=== PATIENT | female | born 1970 | race Caucasian/White ===

== ENCOUNTER 2016-10-30 16:57 | Emergency (ER) | payer BC ==
[2016-10-30] MEDS ORDERED: Sodium Chloride 0.9% 1000 ML 1,000 ML IV STA (17:33)
--- NOTE | 2016-10-30 17:40 | ERPHSYRPT ---
- History of Present Illness Time Seen by Provider: 10/30/16 17:34 Historian: patient Exam Limitations: no limitations Patient Subjective Stated Complaint: RLQ ABD PAIN SINCE 10/20/16. HAD OVARIAN CYSTS REMOVED AND A D&C AT THAT TIME. SEEN SINCE THEN BY FAMILY MD AND AT ED. DX WITH PANCREATITIS. STATES OF WEDNESDAY LABS FOR PANCREATITIS ARE BACK TO NORMAL BUT PAIN CONTINUES. STATES HASN'T BEEN ABLE TO EAT. Triage Nursing Assessment: AMBULATED TO ROOM WITHOUT DIFFICULTY. SKIN W/D, COLOR NORMAL, RESP EASY. ABD SOFT, TENDER. NORMAL BS THROUGHOUT. Physician History: This is a 46-year-old white female with history of chronic pain syndrome and a history of chronic back pain fibromyalgia rheumatoid arthritis she has been complaining of pain in her right upper quadrant abdomen since October 20, 2016 According to the patient she had had an ovarian cyst removal and a D&C at that time she woke up and had abdominal pain she began to have pain in her right upper quadrant she was seen by her family doctor and diagnosed with pancreatitis. Patient the did have a CT of the abdomen here in the emergency room which showed a tiny amount of free air under the right hemidiaphragm incidental left renal cyst and she had lumbosacral junction postsurgical change with bilateral L5 spondylosis and great 5 spondylolisthesis at that time. Patient states she was seen by her family doctor released placed on clear fluids she states she went to [facility] 2 days ago and was told that her amylase and lipase had returned to normal. She now returns stating she is having pain in her right upper quadrant she states she is nauseous she is not vomiting. Patient has no fevers no urinary symptoms. Patient does state that she has not been eating well because of her pain. Patient is on oxycodone and fentanyl which was prescribed by her family doctor. Past medical history includes fibromyalgia, rheumatoid arthritis, cancer of the posterior right leg chronic fatigue, and neuropathy. Past surgical history includes D&C, orthopedic surgery, back surgery 2, Surgery 2 and surgery for cancer on the back of her leg. Timing/Duration: day(s) (pain for 10 days) Activities at Onset: other (began after surgery on the for cyst removal and Dand C) Quality: cramping Abdominal Pain Onset Location: RUQ Pain Radiation: no radiation Severity of Pain-Max: moderate Severity of Pain-Current: moderate Modifying Factors: Improves With: other (patient on fentanyl patches as well as oxycodone) Associated Symptoms: No back, No chest pain, No diaphoresis, No diarrhea, No fever/chills, No fatigue, No headache, No heartburn, No loss of appetite, No neck pain, No rash, No shortness of breath, No syncope, No vomiting, No weakness Previous symptoms: same symptoms as today Allergies/Adverse Reactions: duloxetine HCl [From Cymbalta] Allergy (Verified 04/04/15 11:18) infliximab [From Remicade] Allergy (Verified 04/04/15 11:18) methadone Allergy (Verified 04/04/15 11:18) pregabalin [From Lyrica] Allergy (Verified 04/04/15 11:18) Home Medications: Amphet Asp/Amphet/D-Amphet [Adderall 30 mg Tablet] 30 mg PO BID 04/04/15 [ History] Oxycodone HCl [Oxycodone HCl ER] 10 mg PO QID 04/04/15 [History] Citalopram Hydrobromide [Celexa] 10 mg PO HS 10/30/16 [History] Cyclobenzaprine HCl [Flexeril] 20 mg PO HS 10/30/16 [History] Fentanyl [Duragesic 12MCG Patch] 24 mcg TD Q3D 10/30/16 [History] - Review of Systems Constitutional: No Fever, No Chills Eyes: No Symptoms Ears, Nose, & Throat: No Symptoms Respiratory: No Cough, No Dyspnea Cardiac: No Symptoms Abdominal/Gastrointestinal: Abdominal Pain (pain in the right upper quadrant ), Nausea, No Vomiting, No Diarrhea, No Constipation, No Hematemesis, No Hematochezia, No Melena, No Dysphagia, No Appetite Changes Genitourinary Symptoms: No Dysuria Musculoskeletal: No Back Pain, No Neck Pain Skin: No Rash Neurological: No Dizziness, No Focal Weakness, No Sensory Changes Psychological: No Symptoms Endocrine: No Symptoms All Other Systems: Reviewed and Negative - Past Medical History Pertinent Past Medical History: Yes Neurological History: Peripheral Neuropathy ENT History: No Pertinent History Cardiac History: No Pertinent History Respiratory History: No Pertinent History Endocrine Medical History: No Pertinent History Musculoskeletal History: Fibromyalgia, Rheumatoid Arthritis, Other GI Medical History: No Pertinent History History: No Pertinent History Psycho-Social History: No Pertinent History Female Reproductive Disorders: No Pertinent History Other Medical History: CA ON POSTERIOR RIGHT LEG - Past Surgical History Past Surgical History: Yes Neuro Surgical History: No Pertinent History Cardiac: No Pertinent History Respiratory: No Pertinent History Gastrointestinal: No Pertinent History Genitourinary: No Pertinent History Musculoskeletal: Orthopedic Surgery Female Surgical History: No Pertinent History, Dilation & Curettage Other Surgical History: 2 back surgeries, OVARIAN CYST REMOVED, TWO NECK SURGERIES, CA ON BACK OF RIGHT LEG - Social History Smoking Status: Current every day smoker How long have you smoked: 20 Exposure to second hand smoke: No Drug Use: none Patient Lives Alone: Yes - Female History Hx Last Menstrual Period: ONE YEAR AGO - Nursing Vital Signs Nursing Vital Signs: Initial Vital Signs Temperature 97.7 F Temperature Source Oral Pulse Rate 65 Respiratory Rate 16 Blood Pressure [Right Arm] 107/75 Pain Intensity 8 - Physical Exam General Appearance: no apparent distress, alert Eye Exam: PERRL/EOMI, eyes nml inspection Ears, Nose, Throat Exam: normal ENT inspection, pharynx normal, moist mucous membranes Neck Exam: normal inspection, non-tender, supple, full range of motion Respiratory Exam: normal breath sounds, lungs clear, No respiratory distress Cardiovascular Exam: regular rate/rhythm, normal heart sounds Gastrointestinal/Abdomen Exam: soft, normal bowel sounds, tenderness (right upper quadrant tenderness), No distention, No mass, No guarding, No ecchymosis, No pulsatile mass, No rebound, No hernia, No hepatomegaly, No organomegaly, No splenomegaly Back Exam: normal inspection, normal range of motion, No CVA tenderness, No vertebral tenderness Extremity Exam: normal inspection, normal range of motion, pelvis stable Neurologic Exam: alert, oriented x 3, cooperative, normal mood/affect, nml cerebellar function, sensation nml, No motor deficits Skin Exam: normal color, warm, dry SpO2 Interpretation: normal - Course Nursing assessment & vital signs reviewed: Yes EKG Interpreted by Me: RATE (61 bpm), Sinus Rhythm, NORMAL AXIS, Other (EKG, normal sinus rhythm 61 bpm, normal axis, no acute ST or T wave changes, essentially normal EKG) Ordered Tests: Active Orders 24 hr Category Date Time Status EKG-ER Only STAT Care 10/30/16 17:43 Active IV Insertion STAT Care 10/30/16 17:33 Active AMYLASE Stat Lab 10/30/16 17:30 Completed CBC W DIFF Stat Lab 10/30/16 17:30 Completed CMP Stat Lab 10/30/16 17:30 Completed CULTURE,URINE Stat Lab 10/30/16 19:51 Ordered HCG QUALITATIVE,SERUM Stat Lab 10/30/16 17:30 Completed HCG, Quantitative (Inhouse) Stat Lab 10/30/16 18:45 Completed LIPASE Stat Lab 10/30/16 17:30 Completed TROPONIN Stat Lab 10/30/16 17:30 Completed UA W/ MICROSCOPIC Stat Lab 10/30/16 17:30 Completed Medication Summary Discontinued Medications Generic Name Dose Route Start Last Admin Trade Name Freq PRN Reason Stop Dose Admin Sodium Chloride 1,000 mls @ 999 mls/hr 10/30/16 17:33 10/30/16 17:50 Sodium Chloride 0.9% 1000 Ml IV 10/30/16 18:33 999 mls/hr .Q1H1M STA Administration Sodium Chloride Confirm 10/30/16 17:46 Sodium Chloride 0.9% 1000 Ml Administered 10/30/16 17:47 Dose 1,000 mls @ ud .ROUTE .RUST-MED ONE Lab/Rad Data: Laboratory Result Diagrams 10/30/16 17:30 10/30/16 17:30 Laboratory Results 10/30/16 10/30/16 10/30/16 Range/Units 18:45 17:30 17:30 WBC (4.0-10.5) K/mm3 RBC (4.1-5.4) M/mm3 Hgb (12.0-16.0) gm/dl Hct (35-47) % MCV (78-100) fl MCH (26-32) pg MCHC (32-36) g/dl RDW (11.5-14.0) % Plt Count (150-450) K/mm3 MPV (6-9.5) fl Gran % (36.0-66.0) % Lymphocytes % (24.0-44.0) % Monocytes % (0.0-12.0) % Eosinophils % (0.00-5.0) % Basophils % (0.0-0.4) % Basophils # (0-0.4) Sodium (136-145) mEq/L Potassium (3.5-5.1) mEq/L Chloride (98-107) mEq/L Carbon Dioxide (21-32) mEq/L Anion Gap (5-15) MEQ/L BUN (9-20) mg/dL Creatinine (0.55-1.30) mg/dl Estimated GFR ML/MIN Glucose (70-110) MG/DL Calcium (8.5-10.1) mg/dL Total Bilirubin (0.2-1.0) mg/dL AST (15-37) U/L ALT (12-78) U/L Alkaline Phosphatase (46-116) U/L Troponin I < 0.017 (0.000-0.056) ng/ml Serum Total Protein (6.4-8.2) gm/dL Albumin (3.4-5.0) g/dL Amylase (25-115) U/L Lipase (73-393) U/L Beta HCG, Quant 7 H (0-6) IU/L Serum , Qual (Negative) Ur Collection Type CCMS Urine Color YELLOW (YELLOW) Urine Appearance CLEAR (CLEAR) Urine pH 5.5 (5-6) Ur Specific [place] 1.025 (1.005-1.025) Urine Protein NEGATIVE (Negative) Urine Glucose (UA) NEGATIVE (NEGATIVE) mg/dL Urine Ketones NEGATIVE (NEGATIVE) Urine Nitrite NEGATIVE (NEGATIVE) Urine Bilirubin NEGATIVE (NEGATIVE) Urine Urobilinogen 0.2 (0-1) mg/dL Urine WBC (Auto) SMALL (NEGATIVE) Urine RBC (Auto) SMALL (0-5) Jeramy/ul Urine Microscopic RBC 0-2 (0-2) /HPF Urine Microscopic WBC 5-10 (0-5) /HPF Ur Epithelial Cells FEW (FEW) /HPF Urine Bacteria RARE (NEGATIVE) /HPF Specimen Received 10-30-16 1756 10/30/16 10/30/16 10/30/16 Range/Units 17:30 17:30 17:30 WBC 3.8 L (4.0-10.5) K/mm3 RBC 3.71 L (4.1-5.4) M/mm3 Hgb 11.4 L (12.0-16.0) gm/dl Hct 35.0 (35-47) % MCV 94.3 (78-100) fl MCH 30.7 (26-32) pg MCHC 32.6 (32-36) g/dl RDW 12.8 (11.5-14.0) % Plt Count 204 (150-450) K/mm3 MPV 9.7 H (6-9.5) fl Gran % 44.7 (36.0-66.0) % Lymphocytes % 43.8 (24.0-44.0) % Monocytes % 10.1 (0.0-12.0) % Eosinophils % 1.1 (0.00-5.0) % Basophils % 0.3 (0.0-0.4) % Basophils # 0.01 (0-0.4) Sodium 144 (136-145) mEq/L Potassium 3.8 (3.5-5.1) mEq/L Chloride 107 (98-107) mEq/L Carbon Dioxide 28.2 (21-32) mEq/L Anion Gap 13.0 (5-15) MEQ/L BUN 8 L (9-20) mg/dL Creatinine 0.83 (0.55-1.30) mg/dl Estimated GFR > 60 ML/MIN Glucose 103 (70-110) MG/DL Calcium 8.6 (8.5-10.1) mg/dL Total Bilirubin 0.1 L (0.2-1.0) mg/dL AST 22 (15-37) U/L ALT 21 (12-78) U/L Alkaline Phosphatase 64 (46-116) U/L Troponin I (0.000-0.056) ng/ml Serum Total Protein 6.4 (6.4-8.2) gm/dL Albumin 3.6 (3.4-5.0) g/dL Amylase 52 (25-115) U/L Lipase 73 (73-393) U/L Beta HCG, Quant (0-6) IU/L Serum , Qual POSITIVE (Negative) Ur Collection Type Urine Color (YELLOW) Urine Appearance (CLEAR) Urine pH (5-6) Ur Specific [place] (1.005-1.025) Urine Protein (Negative) Urine Glucose (UA) (NEGATIVE) mg/dL Urine Ketones (NEGATIVE) Urine Nitrite (NEGATIVE) Urine Bilirubin (NEGATIVE) Urine Urobilinogen (0-1) mg/dL Urine WBC (Auto) (NEGATIVE) Urine RBC (Auto) (0-5) Jeramy/ul Urine Microscopic RBC (0-2) /HPF Urine Microscopic WBC (0-5) /HPF Ur Epithelial Cells (FEW) /HPF Urine Bacteria (NEGATIVE) /HPF Specimen Received - Progress Progress: improved Progress Note: 10/30/16 18:55 48-year-old white female complaining of intermittent right-sided abdominal pain going on for greater than 10 days. She states that she had a D&C and had a cyst removal on the of this month she apparently following this had right-sided abdominal pain. Patient had elevated amylase and lipase she was seen by her family doctor placed on clear fluids. She was noted with CT to have a very small amount of air under her diaphragm. Patient is on fentanyl also on oxycodone for pain she states she continues to have pain. Patient appears to be quite comfortable at this time white count is 3.8 hemoglobin 11.4 hematocrit 35 patient's chemistry is normal with the exception hCG interestingly enough is positive troponin is normal EKG is normal urinalysis 5-10 white cells per high-power field. Amylase and lipase are normal. I have gone ahead and ordered a quantitative hCG and will proceed after results are noted. 10/30/16 19:38 The patient's quantitative hCG is 7. Patient is comfortable after 1 L of normal saline patient does have fentanyl as well as oxycodone at home. Patient's urine 5-10 white cells negative nitrites. Patient's amylase lipase within normal limits chemistry within normal limits CBC within normal limits. Will discuss case with Dr. Harding who is physician non invasive cardiologist for Dr. Saleem. 10/30/16 19:52 I have discussed the patient with Dr. Harding patient's labs are essentially normal amylase lipase are within normal limits CBC is normal chemistry is normal quantitative hCG is 7 Patient appears to be quite comfortable after just receiving a liter of normal saline Will discharge patient she has return home clear fluids 24 hours of abdominal pain patient has fentanyl 1.28 mg patches, and oxycodone 10/325 mg at home which were prescribed to her on October 22, 2016. Patient is to follow-up in the clinic she is to call tomorrow to schedule an appointment she is to return for acute distress or for severe symptoms. . 10/30/16 19:57 patient's abdominal wounds are examined there is no erythema they appear to be healed well. - Departure Time of Disposition: 19:53 Departure Disposition: Home Clinical Impression: history of recent D+C, history of recent removal of ovarian cys Abdominal pain Qualifiers: Abdominal location: unspecified location Qualified Code(s): R10.9 - Unspecified abdominal pain Condition: Fair Critical Care Time: No Referrals: CRISTINO SALEEM [Primary Care Provider] - Instructions: Abdominal Pain-Adult Additional Instructions: Return home. Plenty of fluids. Clear fluids only 24-48 hours if abdominal pain. Follow-up with Dr. Saleem call tomorrow to schedule appointment. Return for acute distress or for severe symptoms. Continue fentanyl and oxycodone as prescribed to to you by Dr. Saleem.
[2016-10-30] MEDS ORDERED: Sodium Chloride 0.9% 1000 ML 1,000 ML ONE (17:46)
[2016-10-30 17:47] LABS: BASOPHIL % 0.3 % (0.0-0.4); Eosinophil % 1.1 % (0.00-5.0); Granulocytes % 44.7 % (36.0-66.0); Lymphocytes % 43.8 % (24.0-44.0); Mean Cell Volume 94.3 fl (78-100); Mean Corpuscular Hemoglobin 30.7 pg (26-32); Mean Platelet Volume 9.7 fl (6-9.5); Monocytes % 10.1 % (0.0-12.0); Platelet Count 204 K/mm3 (150-450); Red Blood Count 3.71 M/mm3 (4.1-5.4); Red Cell Distribution Width 12.8 % (11.5-14.0); White Blood Count 3.8 K/mm3 (4.0-10.5)
[2016-10-30 18:11] LABS: Collection Type CCMS; Ph 5.5 (5-6)
[2016-10-30 18:12] LABS: COMPLETE URINE MICROSCOPIC? YES
[2016-10-30 18:13] LABS: ALBUMIN 3.6 g/dL (3.4-5.0); ALKALINE PHOSPHATASE 64 U/L (46-116); BLOOD UREA NITROGEN 8 mg/dL (9-20); Bacteria RARE /HPF (NEGATIVE); CHLORIDE 107 mEq/L (98-107); Carbon Dioxide 28.2 mEq/L (21-32); Epithelial Cells FEW /HPF (FEW); Glucose 103 MG/DL (70-110); LIPASE 73 U/L (73-393); Potassium 3.8 mEq/L (3.5-5.1); SGOT/AST 22 U/L (15-37); SGPT/ALT 21 U/L (12-78); SODIUM 144 mEq/L (136-145); Total Protein 6.4 gm/dL (6.4-8.2)
[2016-10-30 18:33] LABS: BILIRUBIN,TOTAL 0.1 mg/dL (0.2-1.0)
[2016-10-30 19:18] VITALS: BP 107/75; PULSE 65; O2SAT 99
== END 2016-10-30 20:18 | disposition home or self-care (01) ==
LOC: ED 16:57
DX: G89.18 Other acute postprocedural pain (principal); R10.11 Right upper quadrant pain; G62.9 Polyneuropathy, unspecified; M06.9 Rheumatoid arthritis, unspecified; M79.7 Fibromyalgia; C44.702 Unspecified malignant neoplasm of skin of right lower limb, including hip; Z79.899 Other long term (current) drug therapy
CPT/HCPCS: 36000; 36415; 80053; 81000; 82150; 83690; 84484; 84702; 84703; 85025; 87086; 93005; 96360; 99284

== ENCOUNTER 2017-01-28 12:35 | Day surgery (SDC) | payer BC ==
--- NOTE | 2017-01-06 09:46 | HP ---
DATE OF SURGERY: 01/07/2017 ADMISSION DIAGNOSIS: Gallbladder dyskinesia. ANTICIPATED PROCEDURE: Cholecystectomy. HISTORY OF PRESENT ILLNESS: The patient has right upper quadrant pain, nausea, vomiting. She desires to have cholecystectomy and presents for such. PAST MEDICAL HISTORY: ALLERGIES: CYMBALTA, METHADONE, REMICADE. MEDICATIONS: Oxycodone, Fentanyl, Flexeril, Adderall. PAST SURGICAL HISTORY: Two neck lesions. Two spinal fusions. D&C. SOCIAL HISTORY: One pack per day. ETOH negative. FAMILY HISTORY: Negative. REVIEW OF SYSTEMS: Osteoporosis. Fibromyalgia. Rheumatoid arthritis. PHYSICAL EXAMINATION: VITAL SIGNS: Normal. CHEST: Clear. COR: Regular. ABDOMEN: Satisfactory. IMPRESSION: Gallbladder dyskinesia. PLAN: Laparoscopic cholecystectomy.
[~2017-01-28 12:35] MED LIST: DILAUDID 2 MG INJECTION IV ONE; Lactated Ringers 1,000 ML IV ONE; Lactated Ringers 1,000 ML IV SCH; MEFOXIN 2 GM PREMIX** 2 GM/50 ML ML IV ONE; MEFOXIN 2 GM PREMIX** 2 GM/50 ML ML IV SCH; SUBLIMAZE 100 MCG/2 ML IV ONE; Sensorcaine 0.25% 10 ML ONE
[2017-01-28] MEDS ORDERED: BRIDION 200MG/2ML IV ONE (12:36)
[2017-01-28] MEDS ORDERED: Zofran 4 MG/2 ML VIAL IV ONE (12:36)
[2017-01-28] MEDS ORDERED: DIPRIVAN 200 MG/20 ML IV ONE (12:36)
[2017-01-28] MEDS ORDERED: Quelicin Fliptop 200 MG/10 ML IV ONE (12:36)
[2017-01-28] MEDS ORDERED: Zemuron 100 MG/10 ML IV ONE (12:36)
[2017-01-28] MEDS ORDERED: Decadron 4 MG INJ IV ONE (12:36)
[2017-01-28] MEDS ORDERED: DILAUDID 2 MG INJECTION ONE (15:29)
[2017-01-28] MEDS ORDERED: Zofran 4 MG/2 ML VIAL ONE (15:32)
--- NOTE | 2017-01-28 15:38 | OP ---
SURGERY DATE/TIME: 01/28/2017 1445 PREOPERATIVE DIAGNOSIS: Gallbladder dyskinesia. POSTOPERATIVE DIAGNOSIS: Gallbladder dyskinesia. PROCEDURE: Laparoscopic cholecystectomy. SURGEON: Tino Ordonez M.D. ANESTHESIA: General endotracheal tube. COMPLICATIONS: None. CONDITION: Stable. INDICATION: A 46 year old with upper abdominal pain. Ultrasound negative. HIDA scan positive. Seen and examined. Procedure discussed in detail and wished to proceed. DESCRIPTION OF PROCEDURE: Taken to surgery. General anesthetic, routine prep and drape. Verses needle inserted. Opening pressure of 1, insufflating pressure 14. Four - 5's. Good visualization. Anterior surface of the abdomen was clean with no suggestion of any issue. Gallbladder was distended. Cystic duct defined. Cystic artery defined. There were some adhesions mainly against gallbladder that had been taken down. Cystic duct and cystic artery triply clipped. Gallbladder rolled out of gallbladder fossa. Gallbladder delivered through abdominal port with minimal widening. A hole closure device was used with 0 Vicryl. Field was dry. CO2 exsufflated. Port site closed with 4-0 Vicryl and Steri-Strips. The patient tolerated the procedure satisfactorily.
[2017-01-28] MEDS ORDERED: Phenergan 25 MG INJ ONE (15:39)
[2017-01-28] MEDS ORDERED: SUBLIMAZE 100 MCG/2 ML ONE (15:45)
[2017-01-28] MEDS ORDERED: MORPHINE SULFATE 4 MG INJ IV PRN (16:45)
[2017-01-28] MEDS ORDERED: MORPHINE SULFATE 4 MG INJ ONE (16:47)
[2017-01-28 17:37] VITALS: PULSE 69
[2017-01-28 17:48] VITALS: BP 124/63; O2SAT 93
== END 2017-01-28 18:05 | disposition home or self-care (01) ==
LOC: SDC 12:35
PROVIDERS: ATTEND Surgery
PROC: 0FT44ZZ Resection of Gallbladder, Percutaneous Endoscopic Approach (ICD-10-PCS; principal; 2017-01-28)
DX: K81.9 Cholecystitis, unspecified (principal); K82.8 Other specified diseases of gallbladder; M81.0 Age-related osteoporosis without current pathological fracture; M79.7 Fibromyalgia; M06.9 Rheumatoid arthritis, unspecified; Z79.899 Other long term (current) drug therapy; Z72.0 Tobacco use
CPT/HCPCS: 00790; 36415; 88304; J0330; J0694; J1100; J1170; J2270; J2405; J2550; J2704; J3010

== ENCOUNTER 2018-05-25 06:12 | Day surgery (SDC) | payer MEDICARE ==
[2018-05-25] MEDS ORDERED: DIPRIVAN 200 MG/20 ML IV ONE (06:13)
[2018-05-25] MEDS ORDERED: Ketamine HCl 50 MG/ML IV ONE (06:13)
[2018-05-25] MEDS ORDERED: Lactated Ringers 1,000 ML IV SCH (06:30)
[2018-05-25 07:49] VITALS: O2SAT 97
[2018-05-25 08:04] VITALS: BP 113/90; PULSE 76
--- NOTE | 2018-05-25 08:36 | OP ---
SURGERY DATE/TIME: 05/25/2018 0700 PREOPERATIVE DIAGNOSIS: Dysphasia. POSTOPERATIVE DIAGNOSIS: Normal exam. PROCEDURE: EGD. SURGEON: Sudhakar Chris M.D. ANESTHESIA: MAC by Matt Saldana CRNA. ESTIMATED BLOOD LOSS: None. SPECIMENS: None. DESCRIPTION OF PROCEDURE: After informed written consent was obtained, the patient was taken to the endoscopy suite. She had a bite block inserted and underwent monitored anesthesia. The endoscope was inserted in the posterior oropharynx and under direct visualization the esophagus was traversed. There were no obvious mucosal abnormalities or masses upon entry and passage through the esophagus. The mucosal structures all appeared normal. The gastroesophageal junction likewise appeared normal. The stomach had a normal rugated gastric mucosa free of lesions or defects. The pylorus was traversed and the duodenum had a normal mucosal appearance with no obvious abnormalities. Upon withdrawal again all mucosal structures were closely inspected and were free of any lesions or defects. The scope was removed and the patient was transferred to the recovery room in good condition.
== END 2018-05-25 08:30 | disposition home or self-care (01) ==
LOC: SDC 06:12
PROVIDERS: ATTEND Family Medicine
DX: R13.10 Dysphagia, unspecified (principal)
CPT/HCPCS: 94250; J2704